=== PATIENT | female | born 1960 | race Caucasian/White ===

== ENCOUNTER 2016-09-13 00:31 | Emergency (ER) | payer BC, OTHER ==
[~2016-09-13] VITALS: Ht 170.2 cm; Wt 65.0 kg
[2016-09-13 01:09] VITALS: Ht 170.2 cm; Wt 65.0 kg
[2016-09-13 03:34] LABS: URINE BLOOD (Dip) POC 3+ (NEGATIVE)
--- NOTE | 2016-09-13 03:39 | ERD ---
ER Documentation Chief Complaint Date/Time DATE: 09/13/16 TIME: 03:37 Chief Complaint Dysuria and blood in the urine today HPI This 56-year-old female who presents to the emergency department today complaining of burning and pain with urination and some blood in her urine that started last night. Patient denies any flank pain or fevers or chills or nausea or vomiting. ROS All systems reviewed and are negative except as per history of present illness. Medications Home Meds Active Scripts Ibuprofen* (Motrin*) 600 Mg Tab, 600 MG PO Q6, #30 TAB Prov:CALVIN MOCK PA-C 09/13/16 Cephalexin* (Keflex*) 500 Mg Capsule, 500 MG PO QID for 7 Days, CAP Prov:CALVIN MOCK PA-C 09/13/16 Allergies Allergies: Coded Allergies: No Known Allergy (Unverified , 09/13/16) PMhx/Soc Medical and Surgical Hx: pt denies Medical Hx, pt denies Surgical Hx History of Surgery: No Anesthesia Reaction: No Hx Neurological Disorder: No Hx Respiratory Disorders: No Hx Cardiac Disorders: No Hx Psychiatric Problems: No Hx Miscellaneous Medical Probl: No Hx Alcohol Use: No Hx Substance Use: No Hx Tobacco Use: Yes Smoking Status: Current every day smoker Physical Exam Vitals Vital Signs Date Time Temp Pulse Resp B/P Pulse Ox O2 Delivery O2 Flow Rate FiO2 09/13/16 01:09 96.8 83 18 168/77 97 Physical Exam Const: No acute distress Head: Atraumatic Eyes: Normal Conjunctiva ENT: Normal External Ears, Nose and Mouth. Neck: Full range of motion..~ No meningismus. Resp: Clear to auscultation bilaterally Cardio: Regular rate and rhythm, no murmurs Abd: Soft, suprapubic tenderness. non distended. Normal bowel sounds. No right lower quadrant pain. No left lower quadrant pain. Skin: No petechiae or rashes Back: No midline or flank tenderness. No CVA tenderness. Neur: Awake and alert Psych: Normal Mood and Affect Results 24 hrs Laboratory Tests Test 09/13/16 03:36 Bedside Urine Blood 3+ Bedside Urine Glucose (UA) Negative Bedside Urine Ketones (LAB) Negative Bedside Urine Leukocyte Esterase (L 3+ Bedside Urine Nitrite (LAB) Negative Bedside Urine Protein (LAB) 2+ Bedside Urine pH (LAB) 5.5 Procedures/MDM This 56-year-old female who presents to the emergency department today complaining of hematuria and dysuria that started last night. I did obtain a UA UA shows 3+ leukocyte esterase and 3+ blood. Negative nitrites. Patient will be treated with Keflex for urinary tract infection. Patient is afebrile and otherwise well-appearing. She has no flank pain or no nausea or vomiting. Low suspicion for pyelonephritis or nephrolithiasis at this time. She declined pain medication here in the emergency department. She will be given a prescription for Motrin for home. At this time the patient is stable for discharge and outpatient management. Patient should follow up with their PCP in the next 1-2 days. They may return to the emergency department sooner for any persistent or worsening of symptoms. Patient understood and agreed with the plan. Departure Diagnosis: Primary Impression: UTI (urinary tract infection) Urinary tract infection type: site unspecified Hematuria presence: with hematuria Qualified Code: N39.0 - Urinary tract infection with hematuria, site unspecified Condition: Fair CALVIN MOCK PA-C Sep 13, 2016 03:39
[2016-09-13] MEDS ORDERED: IBUP-1542 PO (03:41)
[2016-09-13] MEDS ORDERED: CEPH-443 PO (03:41)
[2016-09-13 04:13] VITALS: BP 158/80; PULSE 78; RESP 18; TEMP 97
== END 2016-09-13 04:13 | disposition home or self-care (01) ==
LOC: FTE 00:31
DX: N39.0 Urinary tract infection, site not specified (principal); F17.210 Nicotine dependence, cigarettes, uncomplicated
CPT/HCPCS: 81003; 99283